=== PATIENT | male | born 2005 ===

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

== ENCOUNTER 2024-03-05 16:29 | Emergency (ER) | payer MEDICAID ==
[~2024-03-05] VITALS: Ht 172.7 cm; Wt 70.2 kg
[2024-03-05] MEDS ORDERED: CYCL-614 PO (18:49)
[2024-03-05] MEDS ORDERED: IBUP-1456 PO (18:49)
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
[2024-03-05 19:03] VITALS: BP 138/77; PULSE 88; RESP 16; TEMP 98.3; O2SAT 98
== END 2024-03-05 19:04 | disposition home or self-care (01) ==
LOC: ER 16:29
DX: S16.1XXA Strain of muscle, fascia and tendon at neck level, initial encounter (principal); S39.012A Strain of muscle, fascia and tendon of lower back, initial encounter; V89.2XXA Person injured in unspecified motor-vehicle accident, traffic, initial encounter; Y93.89 Activity, other specified; Y92.89 Other specified places as the place of occurrence of the external cause; Y99.8 Other external cause status